=== PATIENT | female | born 1990 | race Caucasian/White ===

== ENCOUNTER 2017-07-16 07:52 | Inpatient (IN) ==
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
--- OUTSIDE RECORDS SUMMARY | 2017-07-22 06:00 | External Medical Summary | Continuity of Care Document ---
:1990 Author Organization [facility] Address [address] [place], [place] [id number] Phone Allergies, Adverse Reactions, Alerts Substance Reaction Severity Status CEPHALEXIN MONOHYDRATE Unknown Active loratadine Unknown Active Medications Medication Instructions Dosage Effective Dates Status Comments (start - stop) oseltamivir 75 mg take 1 capsule by 75 MG - Active capsule oral route 2 times every day Vitamin take 1 tablet by Not Available - Active Tab oral route every day Tylenol 325 mg Tab take 1 tablet - Active (325MG) by oral route every 4 hours as needed Problems Condition Effective Dates (start - stop) Clinical Status Suprvsn of preg w poor reprodctv or - obstet hx, third tri Supervision of other high risk - pregnancies, third trimester 28 weeks gestation of - Suprvsn of preg w poor reprodctv or - obstet hx, first tri Supervision of other high risk - pregnancies, first trimester 13 weeks gestation of - Suprvsn of preg w poor reprodctv or - obstet hx, second tri Supervision of other high risk - pregnancies, second trimester 24 weeks gestation of - Suprvsn of preg w poor reprodctv or - obstet hx, second tri Supervision of other high risk - pregnancies, second trimester 16 weeks gestation of - Suprvsn of preg w poor reprodctv or - obstet hx, second tri Supervision of other high risk - pregnancies, second trimester 20 weeks gestation of - Suprvsn of preg w poor reprodctv or - obstet hx, second tri Supervision of other high risk - pregnancies, second trimester 20 weeks gestation of - Suprvsn of preg w poor reprodctv or - obstet hx, third tri Supervision of other high risk - pregnancies, third trimester 30 weeks gestation of - Supervision of other high risk - pregnancies, first trimester Encntr screen for infections w sexl - mode of transmiss Encounter for screening for oth - infec/parastc diseases Encounter for screening of - mother 9 weeks gestation of - Procedures Procedure Date OB Visit No Charge Results Test Name Date and Time Measure Units Reference Range Abnormal Flag Comments Unknown Advance Directives Directive Yes / No Effective Date File Name Unknown Encounters Encounter Practice Location Reason(s) Diagnoses Date Provider Care Team Description For Visit Members [facility] Suprvsn of preg w Apr-1 Kiara Referring In Womens poor reprodctv or 5-201 Sindi. Provider: yuliet Carey hx, third 8 700 Sindi [address] triSupervision of Medical Kiara L, 152, other high risk Center [address] [place] [address], [facility], Bharath Brooke, third [email or web address] 120, Center [id number], weeks gestation Chacho [facility] 120, [place] of Chacho NEGRO, tel:[phone] [place], , [place]. [id number]. tel: tel:[phone] Associates [facility] Suprvsn of preg w Mar-0 Kiara Referring In Womens poor reprodctv or 1-201 Sindi. Provider: yuliet Carey hx, third 8 700 Sindi PO [address] triSupervision of Medical Kiara L, 1522, other high risk Center [address] [place] [address], pregnancies, Bharath Brooke, third [email or web address] 120, Center [id number], weeks gestation Chacho [facility] 120, [place] of Chacho NEGRO, tel:[phone] [place], , [place]. [id number]. tel: tel: [phone] [facility] Feb-1 Kiara In Womens 5-201 Sindi. Health COLIN, 8 700 [address]22, Center [place], , Bharath NEGRO, 120, [id number], [place], [place], tel:[phone] , [place]. tel: [phone] [facility] Suprvsn of preg w Feb-0 Kiara Referring In Womens poor reprodctv or 1-201 Sindi. Provider: Yasmine SHAW, obstet hx, second 8 700 Sindi PO Box triSupervision of Medical Kiara L, 1522, other high risk Center [address] [place] [address], pregnancies, Dr, [facility], second 120, Center , [email or web address] weeks Bharath [place] 120, [place] gestation of Chacho NEGRO, tel: [phone] [place], , [place]. [id number]. tel: tel:[phone] [facility] Suprvsn of preg w Colin-0 Kiara Referring In Womens poor reprodctv or 4-201 Sindi. Provider: Yasmine SHAW obstet hx, second 8 700 Sindi PO Box triSupervision of Medical Kiara L, 1522, other high risk Center [address] [place] [address], pregnancies, , Bharath [facility], second 120, Center , [email or web address] weeks Bharath [place] 120, [place] gestation of Chacho NEGRO, tel: [phone] [place], , [place]. [id number]. tel: tel: [phone] [facility] Suprvsn of preg w Colin-0 Kiara Referring In Womens Ultrasound poor reprodctv or 4-201 Sindi. Provider: Yasmine SHAW, obstet hx, second 8 700 Sheron- PO Box triSupervision of Medical Thiesen 1522, other high risk Center [facility], pregnancies, , [facility] [address] [facility], second 120, [facility], , [email or web address] weeks [place], [place], [place] gestation of CHELLY NEGRO, [address]. tel: [phone] tel: , [place]. [id number] tel: [phone] Nicanor [place] Suprvsn of preg w Kiara Referring In Womens poor reprodctv or 3-201 Sindi. Provider: Health COLIN, obstet hx, second 7 700 Sindi PO Box triSupervision of Medical [facility] L, 1522, other high risk Center 700 [place], pregnancies, Dr, [facility], second 120, Center [id number], [email or web address] weeks [facility] 120, [place] gestation of Chacho NEGRO, tel: [phone] [place], , [place]. [id number]. tel: tel: [phone] Nicanor [place] Suprvsn of preg w Kiara Referring In Womens poor reprodctv or 7-201 Sindi. Provider: Yasmine SHAW, obstet hx, first 7 700 Sindi PO Box triSupervision of Medical [facility] L, 152, other high risk Center 700 [place], pregnancies, Bharath Brooke [facility], first [email or web address] 120, Center [id number], weeks gestation [facility] 120, [place] of [place], tel:[phone] [place], , [place]. [id number]. tel: tel: [phone] Nicanor [place] Supervision of Kiara Referring In Womens other high risk 5-201 Sindi. Provider: Yasmine SHAW, pregnancies, 7 700 Sindi PO Box first Medical Kiara L, 1522, trimesterEncntr Center [address] [place] [address], screen for Bharath Brooke, infections w sexl 120, Center [id number], mode of [place], [facility] 120, [place] transmissEncounte Chacho NEGRO, tel: r for screening [phone] [place], for oth , [place]. [id number]. infec/parastc tel: tel: diseasesEncounter [phone] for screening of mother9 weeks gestation of Nicanor Patel Terry In Womens Ultrasound 3-201 [facility], [address], 1522, [place], [place], [id number], , [place]. [place] tel: [phone] Family History Family Member Diagnosis Age At [...] older Payers Payer name Insurance type Covered libertarian ID Authorization(s) BCBS Out Of State [id number] BCBS Out Of [facility] [id number] Social History Type Description Quantity Date Captured Alcohol Use Details No Caffeine Use Details Unknown Tobacco Use Status Unknown Smoking Status Never smoker Vital Signs Date / Height Weight BMI Pulse Blood Temperature Respiratory Body Head BMI Time: Rate Pressure Rate Surface Circumference percentile Area 254.00 47.9 131/83 -2018 lbs 9 mm[Hg] 2:52 kg/m PM eter (2) 47.8 -2018 2 2:52 kg/m PM eter (2) Chief Complaint And Reason For Visit Unknown Chief Complaint And Reason For Visit Reason For Referral Reason For Referral Unknown Plan Of Care Date Type Action Status Appointment Erika Pelayo BOOKED Appointment Erika Pelayo BOOKED Appointment Erika Pelayo BOOKED Appointment Erika Pelayo BOOKED Appointment Erika Pelayo BOOKED Future Order: Radiology Order Complete OB Ultrasound > 14 Ordered Weeks ([id number]) Date Type Problem Goal Intervention Status Start [...]
--- OUTSIDE RECORDS SUMMARY | 2017-07-22 06:00 | External Medical Summary | Continuity of Care Document ---
:1990 Author Organization [facility] Address [address] [place], [place] [address] Phone Allergies, Adverse Reactions, Alerts Substance Reaction [...] other high risk - pregnancies, third trimester 34 weeks gestation of - Suprvsn of preg [...] other high risk - pregnancies, third trimester 31 weeks gestation of - Suprvsn of preg w poor reprodctv or - obstet hx, third tri Supervision of other high risk - pregnancies, third trimester 30 weeks gestation of - Suprvsn of preg w poor reprodctv or - obstet hx, third tri Supervision of other high risk - pregnancies, third trimester 37 weeks gestation of - Suprvsn of preg w poor reprodctv or - obstet hx, third tri 31 weeks gestation of - Suprvsn of preg w poor reprodctv or - obstet hx, third tri Supervision of other high risk - pregnancies, third trimester 28 weeks gestation of - Supervision of other high risk - pregnancies, first trimester Encntr screen for infections w sexl - mode of transmiss Encounter for screening for oth - infec/parastc diseases Encounter for screening of - mother 9 weeks gestation of - Supervision of other high risk - pregnancies, third trimester Encounter For Screening For - Streptococcus B 36 weeks gestation of - Procedures Procedure Date OB Visit No Charge Results Test Name Date and Time Measure Units Reference Range Abnormal Flag Comments Unknown Advance Directives Directive Yes / No Effective Date File Name Unknown Encounters Encounter Practice Location Reason(s) Diagnoses Date Provider Care Team Description For Visit Members Nicanor [place] Suprvsn of preg w Kiara Referring In Womens poor reprodctv or 3-201 Sindi. Provider: [facility], obstet hx, third 8 700 Sindi [address] triSupervision of Medical Kiara L, 1522, other high risk Center [address] [place], pregnancies, Bharath Brooke, third [email or web address] 120, Center [id number], weeks gestation [place], Bharath 120, [place] of Chacho NEGRO, tel:[phone] [place], , [place]. [id number]. tel: tel:[phone] Nicanor [place] Supervision of Apr-2 Kiara Referring In Womens other high risk 6-201 Sindi. Provider: Health COLIN, pregnancies, 8 700 Sindi PO Box third Medical Kiara L, 1522, trimesterEncounte Center [address] [place] [address], r For Bharath Brooke, Screening For 120, Center [id number], Streptococcus B36 [place], Bharath 120, [place] weeks gestation Chacho NEGRO, tel:+ [phone] [place], , [place]. [id number]. tel: tel:[phone] Nicanor [place] Suprvsn of preg w Apr-1 Kiara Referring In Womens poor reprodctv or 2-201 Sindi. Provider: Health COLIN, obstet hx, third 8 700 Sindi PO Box triSupervision of Medical Kiara L, 1522, other high risk Center [address] [place] [address], pregnancies, Bharath Brooke, third [email or web address] 120, Center [id number], weeks gestation [place], Bharath 120, [place] of Chacho NEGRO, tel:[phone] [place], , [place]. [id number]. tel: tel:[phone] Nicanor [place] Suprvsn of preg w Mar-2 Kiara Referring In Womens poor reprodctv or 8-201 Sindi. Provider: Health COLIN, obstet hx, third 8 700 Sindi PO Box triSupervision of Medical Kiara L, 1522, other high risk Center [address] [place] [address], pregnancies, Bharath Brooke, third [email or web address] 120, Center [id number], weeks gestation [place], Bharath 120, [place] of Chacho NEGRO, tel: [phone] [place], , [place]. [id number]. tel: tel:+ [phone] Associates [facility] Suprvsn of preg w Mar-2 Kiara Referring In Womens Ultrasound poor reprodctv or 8-201 Sindi. Provider: dunia Careyet hx, third 8 700 Sheron- PO Box tri31 weeks Medical Thiesen 1522, gestation of [facility], Bharath Brooke [address] [facility], 120, Drive, [id number], Kevin [place], [place], [address]. tel: [phone] tel: , [place]. [id number] tel: [phone] Associates [facility] Suprvsn of preg w Mar-1 Kiara Referring In Womens poor reprodctv or 5-201 Sindi. Provider: dunia Careyet hx, third 8 700 Sindi PO Box triSupervision of Medical Kiara L, 1522, other high risk Center [address] [place] [address], pregnancies, Bharath Brooke, third [email or web address] 120, Center , weeks gestation Chacho [facility] 120, [place] of Chacho NEGRO, tel: [phone] [place], , [place]. [id number]. tel: tel: [phone] Associates [facility] Suprvsn of preg w Mar-0 Kiara Referring In Womens poor reprodctv or 1-201 Sindi. Provider: dunia Careyet hx, third 8 700 Sindi PO Box triSupervision of Medical Kiara L, 1522, other high risk Center [address] [place] [address], pregnancies, Bharath Brooke, third 120, Center , weeks gestation [place], Bharath 120, [place] of Chacho NEGRO, tel: [phone] [place], , [place]. [id number]. tel: tel: [phone] Associates [facility] Suprvsn of preg w Feb-0 Kiara Referring In Womens poor reprodctv or 1-201 Sidni. Provider: dunia Caeryet hx, second 8 700 Sindi PO Box triSupervision of Medical Kiara L, 1522, other high risk Center [address] [place] [address], pregnancies, , [facility] José Luis NEGRO, second 120, Center [id number], weeks [place], Bharath 120, [place] gestation of Chacho NEGRO, tel: [phone] [place], , [place]. [id number]. tel: tel: [phone] Associates [facility] Suprvsn of preg w Colin-0 Kiara Referring In Womens poor reprodctv or 4-201 Sindi. Provider: Health COLIN, obstet hx, second 8 700 Sindi PO Box triSupervision of Medical Kiara L, 1522, other high risk Center [address] [place] [address], pregnancies, , [facility], second 120, Center [id number], [email or web address] weeks [place], Bharath 120, [place] gestation of Chacho NEGRO, tel: [phone] [place], , [place]. [id number]. tel: tel: [phone] Associates [facility] Suprvsn of preg w Colin-0 Kiara Referring In Womens Ultrasound poor reprodctv or 4-201 Sindi. Provider: Yasmine SHAW obstet hx, second 8 700 Sheron- PO Box triSupervision of Medical Thiesen 1522, other high risk Center [facility], pregnancies, , [facility] [address] [place], second 120, Drive, , [email or web address] weeks Rubi [place], [place] gestation of [place] NEGRO, [address]. tel: tel: , [place]. [id number] tel: [phone] Nicanor [place] Suprvsn of preg w Dec-1 Kiara Referring In Womens poor reprodctv or 3-201 Sindi. Provider: Yasmine SHAW obstet hx, second 7 700 Sindi PO Box triSupervision of Medical Kiara L, 1522, other high risk Center [address] [place] [address], pregnancies, , [facility] [place], second 120, Center [id number], [email or web address] weeks [place], Bharath 120, [place] gestation of Chacho NEGRO, tel: [phone] [place], , [place]. [id number]. tel: tel: [phone] Nicanor [place] Suprvsn of preg w Kiara Referring In Womens poor reprodctv or 7-201 Sindi. Provider: Health COLIN, obstet hx, first 7 700 Sindi PO Box triSupervision of Medical [facility] L, 1522, other high risk Center [address] [place], pregnancies, DrBharath, first [email or web address] 120, Center [id number], weeks gestation [facility] 120, [place] of Chacho NEGRO, tel: [phone] [place], , [place]. [id number]. tel: tel: [phone] Nicanor [place] Supervision of Kiara Referring In Womens other high risk 5-201 Sindi. Provider: Yasmine SHAW, pregnancies, 7 700 Sindi PO Box first Medical [facility] L, 1522, trimesterEncntr Center 700 [place], screen for Bharath Brooke, infections w sexl 120, Center [id number], mode of [place], [facility] 120, [place] transmissEncounte Chacho NEGRO, tel: r for screening [phone] [place], for oth , [place]. [id number]. infec/parastc tel: tel:[phone] diseasesEncounter [phone] for screening of mother9 weeks gestation of Associates [facility] In Womens Ultrasound 3-201 Alfredo. Health COLIN, [address] [place], 1522, [facility], [place], [place], [id number], , [place]. [place] tel: tel: [phone] Family History Family Member Diagnosis Age At [...] of Stroke Immunizations Vaccine Date Status Comments Tdap completed Source: New Immunization Record Influenza, injectable, completed Source: New Immunization Record quadrivalent, preservative free, 3 yrs or older Payers Payer name Insurance type Covered republican ID Authorization(s) BCBS Out Of State [id number] BCBS Out Of State [id number] BCBS Out Of [place] [id number] Social History Type Description Quantity Date Captured Alcohol Use Details No Caffeine Use Details tea 16 oz per day Tobacco Use Status Never smoked tobacco Smoking Status Never smoker Vital Signs Date / Height Weight BMI Pulse Blood Temperature Respiratory Body Head BMI Time: Rate Pressure Rate Surface Circumference percentile Area 254.30 48.0 132/2018 lbs 4 mm[Hg] 3:28 kg/m PM eter (2) Chief Complaint And Reason For Visit Unknown Chief Complaint And Reason For Visit Reason For Referral Reason For Referral Unknown Plan Of Care Date Type Action Status Appointment Erika Pelayo BOOKED Future Order: Radiology Order Complete OB Ultrasound > 14 Ordered Weeks ([id number]) Future Order: Radiology Order Ultrasound OB Follow-up ([id number]) Ordered Date Type Problem Goal Intervention Status Start [...]
--- OUTSIDE RECORDS SUMMARY | 2017-07-22 06:00 | External Medical Summary | Summary of Care ---
:1990 Author Name Josh Reynolds M.D. 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 Quantity: 1 Refills: 1 Josh Reynolds M.D. Start 02-Apr-2016 Active Allergies and Adverse Reactions Name Dates Details Cephalexin CAPS (Allergy) Status: Active Past Medical History Name Dates Details History of acute bronchitis (V12.69, Z87.09) Status: Resolved History of Ankle injury (959.7, S99.919A) Status: Resolved History of Ankle joint pain (719.47, M25.579) Status: Resolved History of Female pelvic pain (625.9, R10.2) Status: Resolved History of Hand pain (729.5, M79.643) Status: Resolved History of Irregular periods/menstrual cycles (626.4, N92.6) Status: Resolved History of Pain in joint of right knee (719.46, M25.561) Status: Resolved History of sprain of ankle (V13.59, Z87.828) Status: Resolved History of Strain of rhomboid muscle (847.1, S29.012A) Status: Resolved Procedures Procedure Dates Details Procedures not documented Immunization Name Dates Details Diphtheria-Tetanus Toxoids 6.7-5 LFU/0.5ML INJ on: Social History Name Dates Details - Status: Smoking Status Name Dates Details Never smoker Vital Signs Date Test Result Details 02-Apr-2016 13:09 BP Systolic 130 mm[Hg] Status: Comments: Location: ; Position: BP Diastolic 82 mm[Hg] Status: Comments: Location: ; Position: Temperature 98.7 f Status: Comments: Method: Heart Rate 99 /min Status: Comments: Location: ; Height 62 in Status: Weight 235 lb Status: Physical Findings 96 Status: Comments: O2 Saturation Body Mass Index Calculated 42.98 kg/m2 Status: Body Surface Area Calculated 2.05 m2 Status: Results Date Description Value Details Results not documented Plan of Care Name Dates Details Planned Observations Planned Goals not documented Interventions Provided Medication ChangesAzithromycin 250 MG Oral Tablet - Start Instructions Name Dates Details Instructions not documented Encounters Appointment; Josh Reynolds M.D. On 08-Dec-2014 Encounter Diagnosis: Problem not documented 15:00
--- OUTSIDE RECORDS SUMMARY | 2017-07-22 06:00 | External Medical Summary ---
:1990 Author Name GENERATED, SYSTEM Care Team Providers Name Role Phone UNASSIGNED DOCTOR MD RUFUS DOCTOR Primary Care Provider [phone] Reason For Visit Chief Complaint ABDOMINAL PAIN Social History Functional Status Vital Signs Results Chemistry from 06/17/2014 10:04 [id number] MMOL/L (136-145 MMOL/L) POTASSIUM3.4 MMOL/L L (3.5-5.1 MMOL/L) [id number] MMOL/L (98-107 MMOL/L) QFK585.6 MMOL/L (21.0-32.0 MMOL/L) ANION GAP3.4 MMOL/L L (8.0-16.0 MMOL/L) BUN10 MG/DL (7-18 MG/DL) CREATININE0.67 MG/DL (0.43-0.83 MG/DL) BUN/CREATININE RATIO14.9 (9.1-17.0 ) IKEOLEQ71 MG/DL (65-99 MG/DL) GFR EST NON AFR IVORIAN>90 ML/MIN GFRA EST AFR AMER>90 ML/MIN CALCIUM8.6 MG/DL (8.5-10.1 MG/DL) BILIRUBIN TOTAL0.25 MG/DL (0.20-1.00 MG/DL) TOTAL PROTEIN6.7 GM/DL (6.4-8.2 GM/DL) ALBUMIN3.6 GM/DL (3.4-5.0 GM/DL) GLOBULIN3.1 GM/DL (2.3-3.5 GM/DL) A/G RATIO1.2 MG/DL L (1.5-2.2 MG/DL) ALK PHOS66 U/L (46-116 U/L) ALT (SGPT)<6 U/L L (16-63 U/L) AST (SGOT)14 U/L L (15-37 U/L) PFZVBX72 U/L (73-393 U/L) TESTNEGATIVE (NEGATIVE )Hematology from 06/17/2014 10:04 PMWBC9.1 X10e3 /UL (3.6-11.2 X10e3/UL) RBC4.57 X10e6/UL (3.63-4.92 X10e6/UL) GSODXIOGUJ28.1 G/DL (11.0-14.3 G/DL) PWYUTLYHML24.4 % (31.2-41.9 %) MCV90.6 FL (79.0-98.0 FL) MCH30.9 PG (27.0-33.0 PG) MCHC34.1 G/DL (32.0-36.0 G/DL) RDW13.2 % (12.3-17.0 %) RDWSD41.6 (37.1-47.8 ) WGKZYKTI879 X10e3/UL (159-386 X10e3/UL) MPV8.8 FL (7.4-10.4 FL) AUTOMATED DIFFPERFORMED SEGS54.6 % AACFKPXUSOL20.0 % MONOCYTES5.8 % EOSINOPHILS4.1 % BASOPHILS0.5 % ABSOLUTE NEUTROPHILS5.00 X10e3/UL (1.80-7.80 X10e3/UL) ABSOLUTE LYMPHOCYTES3.20 X10e3/UL H (1.00-3.00 X10e3/UL) ABSOLUTE MONOCYTES0.50 X10e3/UL (0.30-1.00 X10e3/UL) ABSOLUTE EOSINOPHILS0.40 X10e3/UL (0.00-0.50 X10e3/UL) ABSOLUTE BASOPHILS0.00 X10e3/UL (0.00-0.20 X10e3/UL)Urinalysis from 06/17/2014 9: 45 PM Status: Final Result URINALYSIS Specimen Number: [id number] Sample Collection Date/Time: 06/17/2014 9:45 PM Specimen Source: URINE COLORYELLOW (STRAW/YELL/DK YELL ) URINE APPEARANCECLOUDY A (CLEAR ) URINE PH6.5 (5.0-8.0 ) URINE SPECIFIC GRAVITY1.025 (<=1.005->=1.030 ) URINE GLUCOSENEGATIVE MG/DL (NEGATIVE MG/DL) URINE BILIRUBINNEGATIVE (NEGATIVE ) URINE KETONESNEGATIVE MG/DL (NEGATIVE MG/DL) URINE BLOODNEGATIVE (NEGATIVE ) URINE PROTEINNEGATIVE MG/DL (NEGATIVE MG/DL) URINE UROBILINOGEN1.0 EU/DL (0.2-1.0 EU/DL) URINE NITRITESNEGATIVE (NEGATIVE ) *URINE LEUKOCYTESSMALL A (NEGATIVE ) MICROSCOPIC EXAM PERFORMEDPERFORMED WBC1-5 /HPF (0-5 /HPF) SQUAMOUS EP. CELLSFEW /LPF (NEG-FEW /LPF) MUCOUS THREADSFEW /LPF A (NEGATIVE /LPF) BACTERIAFEW /HPF A (NEGATIVE /HPF)CT Scan from 06/17/2014 9:41 PMCT ABD/PELVIS W/ O CONTRAST (Preliminary Result)DATE OF EXAM: Jun 17 2014 10:35PM Proc: CT 0231 - CT ABD/PELVIS W/O CONTRAST CPT Code(s): 06828-; ; ; INDICATION / CLINICAL HISTORY: Abdominal pain. COMPARISON: None. FINDINGS: The visualized lung bases are clear. The unenhanced liver, spleen, pancreas and gallbladder are normal. The adrenals are normal. There is no urolithiasis. There is no hydronephrosis. The urinary bladder is normal. The abdominal aorta is normal in caliber. An IUD is noted in the uterus. There is a small amount of free fluid in the pelvis, likely physiologic in nature. The unopacified and unenhanced bowel is grossly unremarkable. There is a small fat containing umbilical hernia. IMPRESSION: No acute abdominal processes. A small amount of free fluid in the pelvis is likely physiologic. Problems Encounter Diagnosis No relevant problems exist. Encounters Encounter Diagnosis No relevant problems exist. Plan of Care Procedures Completed , on 07/29/2009 12:00 AMCompleted , on 07/29/2009 12:00 AMCompleted , on 12:00 AMCompleted , on 07/29/2009 12:00 AM Immunizations No immunizations administered or ordered. Hospital Course Hospital Discharge Instructions Allergies, Adverse Reactions, Alerts Latex Allergy has not been assessed.IV Contrast Allergy has not been assessed.No Known Drug Allergies. Medication Medication reconciliation has not been performed.
--- OUTSIDE RECORDS SUMMARY | 2017-07-22 06:00 | External Medical Summary | Summary of Care ---
:1990 Author Name Josh Reynolds M.D. Address [address] [place], [place] [id number] Care Team Providers Name Role Phone Josh Reynolds M.D. Unavailable Unavailable Josh Reynolds Unavailable Unavailable Unavailable [...] pain, chronic, right (719.47, M25.571) Status: Active Acute bronchitis due to other specified organisms (466.0, J20.8) Status: Active Never smoker Status: Active Exposure to the flu (V01.79, Z20.828) Status: Active control counseling (V25.09, Z30.09) Status: Active Medications Name Dates Details Reclipsen 0.15-30 MG-MCG Oral Tablet TAKE ONE TABLET BY MOUTH EVERY DAY DIRECTED Quantity: 28 Refills: 11 Josh Reynolds M.D. Start 30-May-2016 Active Allergies and Adverse Reactions Name Dates [...] smoker Vital Signs Date Test Result Details 30-May-2016 10:44 BP Systolic 116 mm[Hg] Status: Comments: Location: ; Position: BP Diastolic 78 mm[Hg] Status: Comments: Location: ; Position: Temperature 98.6 f Status: Comments: Method: Heart Rate 94 /min Status: Comments: Location: ; Physical Findings 14 Status: Comments: Respiration Height 62 in Status: Weight 240 lb Status: Physical Findings 96 Status: Comments: O2 Saturation Body Mass Index Calculated 43.9 kg/m2 Status: Body Surface Area Calculated 2.07 m2 Status: Results Date Description Value Details Results not documented Plan of Care Name Dates Details Planned Observations Planned Goals not documented Interventions Provided Medication ChangesReclipsen 0.15-30 MG-MCG Oral Tablet - Start Instructions Name Dates Details Instructions not documented Encounters Appointment; Josh Reynolds M.D. On 02-Apr-2016 Encounter Diagnosis: Problem not documented 13:15 Appointment; Josh Reynolds M.D. On 08-Dec-2014 Encounter Diagnosis: Problem not documented 15:00
--- OUTSIDE RECORDS SUMMARY | 2017-07-22 06:00 | External Medical Summary | Summary of Care ---
:1990 Author Name Josh Reynolds M.D. Address [address] [place], [place] [id number] Care Team Providers Name Role Phone Josh Reynolds Primary Care Provider Unavailable Unavailable Unavailable Unavailable Functional Status Functional [...] pain, chronic, right (719.47, M25.571) Status: Active Medications Name Dates Details Medication not documented Allergies and Adverse Reactions Name Dates Details Cephalexin CAPS Status: Active Past Medical History Name Dates [...] Name Dates Details Diphtheria-Tetanus Toxoids 6.7-5 LFU/0.5ML Intramuscular Injectable Administered on: Social History Name Dates Details Smoking StatusNever smoker Vital Signs Date Test Result Details 08-Dec-2014 15:15 BP Systolic 100 mm[Hg] Status: BP Diastolic 80 mm[Hg] Status: Temperature 98.3 f Status: Heart Rate 96 /min Status: Respiration Rate 12 /min Status: Height 62 in Status: Weight 214 lb Status: Body Mass Index Calculated 39.14 kg/m2 Status: Body Surface Area Calculated 1.97 m2 Status: Results Date Description Value Details Results not documented Plan of Care Planned Observations Name Dates Details Planned Goals not documented Goal Planned Encounters Appointment; Provider: Josh Reynolds On 01-Apr-2007 14:30 Instructions Instructions not documented Encounters Appointment; Josh Reynolds On 08-Dec-2014 Encounter Diagnosis: Problem not documented 15:00 Appointment; Josh Reynolds On 04-Oct-2013 Encounter Diagnosis: Problem not documented 14:15 Appointment; Josh Reynolds On 02-Mar-2013 Encounter Diagnosis: Problem not documented 09:45
--- OUTSIDE RECORDS SUMMARY | 2017-07-22 06:00 | External Medical Summary | Continuity of Care Document ---
:1990 Author Organization [facility] Address [address] [place], [place] [address] Phone Allergies, Adverse Reactions, Alerts Substance Reaction [...] first trimester 13 weeks gestation of - Supervision of other high risk - pregnancies, first trimester Encntr screen for infections w sexl - mode of transmiss Encounter for screening for oth - infec/parastc diseases Encounter for screening of - mother 9 weeks gestation of - Procedures Procedure Date OB Visit No Charge OB Prepayment Agreement Urine Culture OB Panel With An HIV Venpnctr fngr/heel/ear stick routne Cult, bactr, ident isolate, urine Results Test Name Date and Time Measure Units Reference Range Abnormal Flag Comments Unknown Advance Directives Directive Yes / No Effective Date File Name Unknown Encounters Encounter Practice Location Reason(s) Diagnoses Date Provider Care Team Description For Visit Members [facility] Suprvsn of preg w Kiara Referring In [facility] poor reprodctv or Sindi. Provider: Health PA, obstet hx, first 7 700 Sindi PO [address] triSupervision of Medical [facility] L, 1522, other high risk Center [address] [place], pregnancies, Dr, Bharath NEGRO, first [id number] 120, Center [id number], weeks gestation [place], [facility] 120, [place] of Chacho NEGRO, tel:+ [phone] [place], , [place]. [id number]. tel: tel:[phone] [facility] Supervision of Kiara Referring In Womens other high risk 5-201 Sindi. Provider: Health COLIN, pregnancies, 7 700 Sindi [address] first Medical Kiara L, 1522, trimesterEncntr Center [address] [place], screen for Dr, Bharath NEGRO, infections w sexl 120, Center [id number], mode of [place], [facility] 120, [place] transmissEncounte Chacho NEGRO, tel: r for screening [phone] [place], for oth , [place]. [id number]. infec/parastc tel: tel:[phone] diseasesEncounter [phone] for screening of mother9 weeks gestation of Associates [facility] Terry In Womens Ultrasound 3-201 Alfredo. Health [facility], [address], [place], [place], [id number], , [place]. [place] tel: tel: [phone] Family History Family Member Diagnosis Age At [...] Covered republican ID Authorization(s) [employer] [facility] [id number] [employer] [facility] [id number] Social History Type Description Quantity Date Captured Alcohol Use Details No Caffeine Use Details tea 16 oz per day Tobacco Use Status Never smoked tobacco Smoking Status Never smoker Vital Signs Date / Height Weight BMI Pulse Blood Temperature Respiratory Body Head BMI Time: Rate Pressure Rate Surface Circumference percentile Area 46.7 -2017 2 1:49 kg/m PM eter (2) 249.50 47.1 130/89 -2017 lbs 4 mm[Hg] 1:55 kg/m PM eter (2) Chief Complaint And Reason For Visit Unknown Chief Complaint And Reason For Visit Reason For Referral Reason For Referral Unknown Plan Of Care Date Type Action Status Appointment Erika Pelayo BOOKED Date Type Problem [...]
--- OUTSIDE RECORDS SUMMARY | 2017-07-22 06:00 | External Medical Summary | Continuity of Care Document ---
:1990 Author Organization [facility] Address [address] [place], [place] [address] Phone Allergies, Adverse Reactions, Alerts Substance Reaction [...] third trimester 34 weeks gestation of - Supervision of other high risk - pregnancies, first trimester Encntr screen for infections w sexl - mode of transmiss Encounter for screening for oth - infec/parastc diseases Encounter for screening of - mother 9 weeks gestation of - Procedures Procedure Date Ultrasnd preg uterus, flwup/repeat Results Test Name Date and Time Measure Units Reference Range Abnormal Flag Comments Unknown Advance Directives Directive Yes / No Effective Date File Name Unknown Encounters Encounter Practice Location Reason(s) Diagnoses Date Provider Care Team Description For Visit Members Nicanor Baezn of preg w Kiara Referring In Womens poor reprodctv or 2-201 Sindi. Provider: Health PA, obstet hx, third 8 700 Sindi PO Box triSupervision of [facility] L, 1522, other high risk Center [address] [place], pregnancies, Bharath Brooke, third [id number] 120, [place] [id number], weeks gestation Bharath [place] 120, [place] of [place] NEGRO, tel:[phone] [place], [id number] , [place]. [id number]. tel: tel: [phone] Associates [place] Suprvsn of preg w Mar-2 Kiara Referring In Womens poor reprodctv or 8-201 Sindi. Provider: Yasmine SHAW obstet hx, third 8 700 Sindi PO Box triSupervision of Medical Kiara L, 1522, other high risk Center [address] [place] [address], pregnancies, Bharath Brooke, third [email or web address] 120, Center [id number], weeks gestation [place], [facility] 120, [place] of Ch[place] NEGRO, tel:[phone] [place], , [place]. [id number]. tel: tel: [phone] [facility] Suprvsn of preg w Mar-2 Kiara Referring In Womens Ultrasound poor reprodctv or 8-201 Sindi. Provider: Yasmine SHAW obstet hx, third 8 700 Sheron- PO [address] tri31 weeks Medical Thiesen 1522, gestation of [facility], [facility] [address] [facility] [id number] [place] [address], 120, [facility], , Kevin Flor, [place], [address]. tel:[phone] tel: , [place]. [id number] tel: [phone] [facility] Suprvsn of preg w Mar-1 Kiara Referring In Womens poor reprodctv or 5-201 Sindi. Provider: dunia Careyet hx, third 8 700 Sindi PO Box triSupervision of Medical [place] L, 1522, other high risk Center [address] [place] [address], pregnancies, Bharath Brooke, third [id number] 120, Center [id number], weeks gestation [place], [facility] 120, [place] of Chacho NEGRO, tel: [phone] [place], , [place]. [id number]. tel: tel: [phone] [facility] Suprvsn of preg w Mar-0 Kiara Referring In Womens poor reprodctv or 1-201 Sindi. Provider: Yasmine SHAW obstet hx, third 8 700 Sindi PO Box triSupervision of Medical [place] L, 1522, other high risk Center [address] [place] [address], pregnancies, Bharath Brooke, third [id number] 120, Center [id number], weeks gestation Chacho Bharath 120, [place] of Ch[place] NEGRO, tel:[phone] [place], , [place]. [id number]. tel: tel: [phone] [facility] Suprvsn of preg w Feb-0 Kiara Referring In Womens poor reprodctv or 1-201 Sindi. Provider: Health COLIN, obstet hx, second 8 700 Sindi PO Box triSupervision of Medical [facility] L, 1522, other high risk Center [address] [place], pregnancies, , [facility], second 120, Center [id number], [id number] weeks Chacho Bharath 120, [place] gestation of Chacho NEGRO, tel: [phone] [place], , [place]. [id number]. tel: tel: [phone] Nicanor [place] Suprvsn of preg w Colin-0 Kiara Referring In Womens poor reprodctv or 4-201 Sindi. Provider: Yasmine SHAW obstet hx, second 8 700 Sindi PO Box triSupervision of Medical [facility] L, 1522, other high risk Center [address] [place], pregnancies, , [facility], second 120, Center [id number] weeks Chacho Bharath 120, [place] gestation of Chacho NEGRO, tel: [phone] [place], , [place]. [id number]. tel: tel: [phone] [facility] Suprvsn of preg w Colin-0 Kiara Referring In Womens Ultrasound poor reprodctv or 4-201 Sindi. Provider: Yasmine SHAW obstet hx, second 8 700 Sheron- PO Box [facility]Super[facility], other high risk Center [place], [place], pregnancies, , [facility] [address] [facility], second [address], Drive, , weeks [place], [place], [address]. tel:+ [phone] tel: , [place]. [id number] tel: [phone] Nicanor [place] Suprvsn of preg w Kiara Referring In Womens poor reprodctv or 3-201 Sindi. Provider: Yasmine SHAW, obstet hx, second 7 700 Sindi PO Box triSupervision of Medical [facility] L, 1522, other high risk Center [address] [place], pregnancies, DrBharath, second 120, Center [id number], weeks [place], [facility] 120, [place] gestation of Chacho NEGRO, tel: [phone] [place], , [place]. [id number]. tel: tel: [phone] Nicanor [place] Suprvsn of preg w Kiara Referring In Womens poor reprodctv or 7-201 Sindi. Provider: Yasmine SHAW, obstet hx, first 7 700 Sindi PO Box triSupervision of Medical [facility] L, 152, other high risk Center 700 [place], pregnancies, Bharath Brooke, first [id number] 120, Center [id number], weeks gestation [place], [facility] 120, [place] of Chacho NEGRO, tel: [phone] [place], , [place]. [id number]. tel: tel: [phone] Nicanor [place] Supervision of Kiara Referring In Womens other high risk 5-201 Sindi. Provider: Yasmine SHAW, pregnancies, 7 700 Sindi PO Box first Medical [facility], 1522, trimesterEncntr Center [address] [place] [address], screen for Bharath Brooke, infections w sexl 120, Center [id number], mode of [place], Bharath 120, [place] transmissEncounte Ch[place] NEGRO, tel: r for screening [phone] [place], for oth , [place]. [id number]. infec/parastc tel: tel: diseasesEncounter [phone] for screening of mother9 weeks gestation of Associates [facility] Terry In Womens Ultrasound 3-201 Alfredo. Health COLIN, [address], 1522, [place], [place], [place], [id number], , [place]. [place] tel: [phone] Family History Family Member Diagnosis Age At [...] older Payers Payer name Insurance type Covered alliance party ID Authorization(s) BCBS Out Of State [id number] BCBS Out Of State [id number] Social History Type Description Quantity Date Captured [...] Erika Pelayo BOOKED Future Order: Radiology Order Ultrasound OB Follow-up ([id number]) Ordered Future Order: Radiology Order Complete OB Ultrasound > 14 Ordered Weeks ([id number]) Date Type Problem Goal Intervention Status Start [...]
--- OUTSIDE RECORDS SUMMARY | 2017-07-22 06:01 | External Medical Summary | Continuity of Care Document ---
:1990 Author Organization [facility] Address [address] [place], [place] [id number] Phone Allergies, Adverse Reactions, Alerts Substance Reaction [...] of preg w Jan- Kiara Referring In [facility] poor reprodctv or 3-201 Sindi. Provider: Health COLIN obstet hx, second 7 700 Sindi PO Box triSupervision of Medical Kiara L, 1522, other high risk Center [address] [place], pregnancies, Dr, Bharath NEGRO, second 120, Center [id number], [id number] weeks [place], [facility] 120, [place] gestation of Chacho NEGRO, tel:+ [phone] [place], , [place]. [id number]. tel: tel: [phone] Nicanor [place] Suprvsn of preg w Kiara Referring In Womens poor reprodctv or 7-201 Sindi. Provider: Health COLIN, obstet hx, first 7 700 Sindi PO Box triSupervision of Medical [facility] L, 1522, other high risk Center [address] [place], pregnancies, Dr, Bharath NEGRO, first [id number] 120, Center [id number], weeks gestation [place], [facility] 120, [place] of Chacho NEGRO, tel:[phone] [place], , [place]. [id number]. tel: tel:[phone] Nicanor [place] Supervision of Kiara Referring In Womens other high risk 5-201 Sidni. Provider: Yasmine SHAW, pregnancies, 7 700 Sindi PO Box first Medical [facility] L, 1522, trimesterEncntr Center [address] [place] [address], screen for Dr, [facility] José Luis [place], infections w sexl 120, Center [id number], mode of [place], [facility] 120, [place] transmissEncounte Chacho NEGRO, tel: r for screening [phone] [place], for oth , [place]. [id number]. infec/parastc tel: tel:[phone] diseasesEncounter [phone] for screening of mother9 weeks gestation of Associates [facility] Terry In Womens Ultrasound 3-201 Alfredo. [facility], [address], 1522, [place], [place], [place], [id number], , [place]. [place] tel: tel: [phone] Family History Family Member Diagnosis Age At [...] party ID Authorization(s) BCBS Out Of State [id number] BCBS Out Of State [id number] Social History Type Description Quantity Date Captured Alcohol Use Details No Caffeine Use Details Unknown Tobacco Use Status Unknown Smoking Status Never smoker Vital Signs Date / Height Weight BMI Pulse Blood Temperature Respiratory Body Head BMI Time: Rate Pressure Rate Surface Circumference percentile Area 249.70 47.1 122/ lbs 7 mm[Hg] 5:18 kg/m PM eter (2) Chief Complaint And [...]
--- OUTSIDE RECORDS SUMMARY | 2017-07-22 06:01 | External Medical Summary | Continuity of Care Document ---
:1990 Author Organization [facility] Address [address] [place], [place] [id number] Phone Allergies, Adverse Reactions, Alerts Substance Reaction [...] second trimester 20 weeks gestation of - Supervision of other [...] Members Nicanor [place] Suprvsn of preg w Feb-0 Kiara Referring In Womens poor reprodctv or 4-201 Sindi. Provider: dunia Careyet hx, second 8 700 Sindi PO [address] triSupervision of Medical Kiara L, 1522, other high risk Center [address] [place], pregnancies, , [facility] Medical MARKY, second 120, Center , [email or web address] weeks [facility] 120, [place] gestation of MARKYChacho, tel: [phone] [place], , [place]. [id number]. tel: tel: [phone] Nicanor [place] Suprvsn of preg w Feb- Kiara Referring In Womens Ultrasound poor reprodctv or 4-201 Sindi. Provider: dunia Careyet hx, second 8 700 Sheron- PO Box triSupervision of Medical Thiesen 1522, other high risk Center [facility], pregnancies, , [facility] [address] [facility], second 120, Drive, , [id number] weeks Kevin [place], [place] gestation of CHELLY NEGRO, [address]. tel: tel: , [place]. [id number] tel: [phone] Nicanor [place] Suprvsn of preg w Kiara Referring In Womens poor reprodctv or 3-201 Sindi. Provider: dunia Careyet hx, second 7 700 Sindi PO Box triSupervision of Medical Kiara L, 1522, other high risk Center 700 [place], , [facility] Medical [place], second 120, Center , [email or web address] weeks Chacho [facility] 120, [place] gestation of MARKY [place], tel: [phone] [place], , [place]. [id number]. tel: tel: [phone] Nicanor [place] Suprvsn of preg w Kiara Referring In Womens poor reprodctv or 7-201 Sindi. Provider: Health COLIN, obstet hx, first 7 700 Sindi PO Box triSupervision of Medical Kiara L, 1522, other high risk Center [address] [place], pregnancies, Bharath Brooke, first [email or web address] 120, Center [id number], weeks gestation [place], [facility] 120, [place] of Chacho NEGRO, tel:+ [phone] [place], , [place]. [id number]. tel: tel:[phone] Nicanor [place] Supervision of Kiara Referring In Womens other high risk 5-201 Sindi. Provider: Yasmine SHAW, pregnancies, 7 700 Sindi PO Box first Medical Kiara L, 1522, trimesterEncntr Center [address] [place], screen for Bharath Brooke, infections w sexl 120, Center [id number], mode of [facility] 120, [place] transmissEncounte Chacho NEGRO, tel: r for screening [phone] [place], for oth , [place]. [id number]. infec/parastc tel: tel:316 diseasesEncsutter [facility] [phone] for screening of mother9 weeks gestation of Nicanor CROCKER [facility] Terry In Womens Ultrasound 3-201 Alfredo. Health COLIN, [address] 1522, [facility], [place], [place], [id number], , [place]. [place] tel: tel: [phone] Family History Family Member Diagnosis Age At [...] party ID Authorization(s) BCBS Out Of [place] [id number] BCBS Out Of [place] [id number] Social History Type Description Quantity Date Captured Alcohol Use Details No Caffeine Use Details Unknown Tobacco Use Status Unknown Smoking Status Never smoker Vital Signs Date / Height Weight BMI Pulse Blood Temperature Respiratory Body Head BMI Time: Rate Pressure Rate Surface Circumference percentile Area 250.60 47.3 124/2018 lbs 4 mm[Hg] 2:46 kg/m PM eter (2) Chief Complaint And Reason For Visit Unknown Chief Complaint And Reason For Visit Reason For Referral Reason For Referral Unknown Plan Of Care Date Type Action Status Appointment Erika Pelayo BOOKED Future Order: Radiology Order Complete OB Ultrasound > 14 Ordered Weeks ([id number]) Date Type Problem Goal Intervention Status Start [...]
--- OUTSIDE RECORDS SUMMARY | 2017-07-22 06:01 | External Medical Summary | Continuity of Care Document ---
:1989 Author Organization [facility] Address [address] [place], [place] [phone] Phone Allergies, Adverse Reactions, Alerts Substance Reaction [...] Effective Dates (start - stop) Clinical Status Supervision of other high risk - pregnancies, third trimester Encounter For Screening For - Streptococcus B 36 weeks gestation of - Suprvsn of preg [...] other high risk - pregnancies, third trimester 38 weeks gestation of - Supervision of other high risk - pregnancies, first trimester Encntr screen for infections w sexl - mode of transmiss Encounter for screening for oth - infec/parastc diseases Encounter for screening of - mother 9 weeks gestation of - Supervision of other high risk - pregnancies, third trimester 38 weeks gestation of - Procedures Procedure Date Immuniz admnin, 1 vac, sngl/combo 19 Yrs + TDAP VACCINE >7 IM OB Visit No Charge - LAY OUT DRAFTER Cult, pathgnc orgnsm, screen Results Test Name Date and Time Measure Units Reference Range Abnormal Flag Comments Panel Description: Strep Gp B Culture+Rflx Strep Gp B Negative Negative Centers for Disease Control Culture+Rflx 16:11:00 and Prevention (CDC) and Australian Congressof Obstetricians and Gynecologists (ACOG) guidelines for prevention ofperinatal group B streptococcal (GBS) disease specify co-collection ofa vaginal and rectal swab specimen to maximize sensitivity of GBSdetection. Per the CDC and ACOG, swabbing both the lower vagina andrectum substantially increases the yield of detection compared withsampling the vagina alone. .Penicillin G, ampicillin, or cefazolin are indicated for intrapartumprophylaxis of GBS colonization. Reflex susceptibilitytesting should be performed prior to use of clindamycin only on GBSisolates from penicillin-allergic women who are considered a high riskfor anaphylaxis. Treatment with vancomycin without additional testingis warranted if resistance to clindamycin is noted. Advance Directives Directive Yes / No Effective Date File Name Unknown Encounters Encounter Practice Location Reason(s) Diagnoses Date Provider Care Team Description For Visit Members Associates [facility] Francevsn of preg w Kiara Referring In Womens poor reprodctv or 6-201 Sindi. Provider: Yasmine SHAW obstet , third 8 700 Sindi PO Box triSupervision of Medical Kiara L, 1522, other high risk Center [address] [place], pregnancies, Bharath Brooke, third [email or web address] 120, Center , weeks gestation Chacho [facility] 120, [place] of Chacho NEGRO, tel: [phone] [facility] , [place]. [id number]. tel: tel: [phone] Associates [facility] Supervision of Kiara Referring In Womens other high risk 0-201 Sindi. Provider: Yasmine SHAW, pregnancies, 8 700 Sindi PO Box third [email or web address] Medical Kiara L, 1522, weeks gestation Center [address] [place], of Bharath Brooke, 120, Center [id number], Chacho [facility] 120, US Chacho NEGRO, tel: [phone] [facility] , [place]. [id number]. tel: tel:[phone] Associates [facility] Suprvsn of preg w May-0 Kiara Referring In Womens poor reprodctv or 3-201 Sindi. Provider: Yasmine SHAW, obstet hx, third 8 700 Sindi PO Box triSupervision of Medical Kiara L, 1522, other high risk Center [address] [place] [address], pregnancies, Bharath Brooke, third [email or web address] 120, Center [id number], weeks gestation [place], Bharath 120, [place] of Chacho NEGRO, tel:[phone] [place], , [place]. [id number]. tel: tel:[phone] Nicanor [place] Supervision of Apr-2 Kiara Referring In Womens other high risk 6-201 Sindi. Provider: Yasmine SHAW, pregnancies, 8 700 Sindi PO Box third Medical Kiara L, 1522, trimesterEncounte Center [address] [place] [address], For Bharath Brooke, Screening For 120, Center [id number], Streptococcus B36 [place], Bharath 120, [place] weeks gestation Chacho NEGRO, tel: of [phone] [place], , [place]. [id number]. tel: tel:[phone] Associates [place] Suprvsn of preg w Apr-1 Kiara Referring In Womens poor reprodctv or 2-201 Sindi. Provider: Yasmine SHAW, obstet hx, third 8 700 Sindi PO Box triSupervision of Medical Kiara L, 1522, other high risk Center [address] [place] [address], pregnancies, Bharath Brooke, third [id number] 120, Center [id number], weeks gestation [place], Bharath 120, [place] of Chacho NEGRO, tel:+ [phone] [place], , [place]. [id number]. tel: tel:[phone] Nicanor [place] Suprvsn of preg w Mar-2 Kiara Referring In Womens poor reprodctv or 8-201 Sindi. Provider: Yasmine SHAW obstet hx, third 8 700 Sindi PO Box triSupervision of Medical Kiara L, 1522, other high risk Center [address] [place] [address], pregnancies, Bharath Brooke, third [email or web address] 120, Center , weeks gestation [place], Bharath 120, [place] of Chacho NEGRO, tel:[phone] [place], , [place]. [id number]. tel: tel: [phone] Associates [facility] Suprvsn of preg w Mar-2 Kiara Referring In Womens Ultrasound poor reprodctv or 8-201 Sindi. Provider: Health COLIN, obstet hx, third 8 700 Sheron- PO Box tri31 weeks Medical Thiesen 1522, gestation of Center [facility], Bharath Brooke [address] [facility], [address], Drive, , Rubi [place], [facility], [address]. tel:[phone] tel: , [place]. [id number] tel: [phone] Nicanor [place] Suprvsn of preg w Mar-1 Kiara Referring In Womens poor reprodctv or 5-201 Sindi. Provider: Health COLIN, obstet hx, third 8 700 Sindi PO Box triSupervision of Medical Kiara L, 1522, other high risk Center [address] [place] [address], pregnancies, Bharath Brooke, third [id number] 120, Center [id number], weeks gestation [place], Bharath 120, US of Chacho NEGRO, tel:[phone] [place], , [place]. [id number]. tel: tel: [phone] Associates [place] Suprvsn of preg w Mar-0 Kiara Referring In Womens poor reprodctv or 1-201 Sindi. Provider: Health COLIN, obstet hx, third 8 700 Sindi PO Box triSupervision of Medical Kiara L, 1522, other high risk Center [address] [place], pregnancies, Bharath Brooke, third [id number] 120, Center [id number], weeks gestation [place], Bharath 120, US of Chacho NEGRO, tel:[phone] MARK[place], , [place]. [id number]. tel: tel: [phone] Associates [place] Suprvsn of preg w Mar-0 Kiara Referring In Womens poor reprodctv or 1-201 Sindi. Provider: yuliet Carey hx, second 8 700 Sindi PO Box triSupervision of Medical [facility] L, 1522, other high risk Center [address] [place], pregnancies, Dr, [facility], second 120, Center , [id number] weeks [place], Bharath 120, [place] gestation of Chacho NEGRO, tel: [phone] [place], , [place]. [id number]. tel: tel: [phone] Associates [place] Suprvsn of preg w Colin-0 Kiara Referring In Womens poor reprodctv or 4-201 Sindi. Provider: yuliet Carey hx, second 8 700 Sindi PO Box triSupervision of [facility] L, 1522, other high risk Center [address] [place], pregnancies, Dr, [facility], second 120, Center , weeks [place], Bharath 120, [place] gestation of Chacho NEGRO, tel: [phone] [place], , [place]. [id number]. tel: tel: [phone] Associates [place] Suprvsn of preg w Colin-0 Kiara Referring In Womens Ultrasound poor reprodctv or 4-201 Sindi. Provider: yuliet Carey hx, second 8 700 Sheron- PO Box triSupervision of [facility] 1522, other high risk Center [facility], [place], pregnancies, Dr, [facility] [address] [facility], second 120, Drive, , [email or web address] weeks Kevin [place], [place] gestation of CHELLY NEGR[place], [address]. tel: tel: , [place]. [id number] tel: [phone] [facility] [place] Suprvsn of preg w Jan-1 Kiara Referring In Womens poor reprodctv or 3-201 Sindi. Provider: Health PA, obstet hx, second 7 700 Sindi PO Box triSupervision of Medical [facility] L, 1522, other high risk Center 700 [place], pregnancies, , Bharath NEGRO, second 120, Center [id number], [email or web address] weeks [facility] 120, [place] gestation of MARKY [place], tel:+ [phone] [place], , [place]. [id number]. tel: tel: [phone] Nicanor [place] Suprvsn of preg w Kiara Referring In Womens poor reprodctv or 7-201 Sindi. Provider: Yasmine SHAW, obstet hx, first 7 700 Sindi PO Box triSupervision of Medical [facility] L, 1522, other high risk Center [address] [place], pregnancies, Dr, Bharath NEGRO, first [id number] 120, Center [id number], weeks gestation [facility] 120, US of MARKYChacho, tel:[phone] [place], , [place]. [id number]. tel: tel: [phone] Nicanor [place] Supervision of Kiara Referring In Womens other high risk 5-201 Sindi. Provider: Yasmine SHAW, pregnancies, 7 700 Sindi PO Box first Medical [facility] L, 1522, trimesterEncntr Center [address] [place] [address], screen for Bharath Brooke, infections w sexl 120, Center [id number], mode of [place], [facility] 120, US transmissEncounte Chacho NEGRO, tel: r for screening [phone] [place], for oth , [place]. [id number]. infec/parastc tel: tel:316 diseasesEncounter [phone] for screening of mother9 weeks gestation of Associates [facility] Patel [place] In Womens Ultrasound 3-201 Alfredo. Health COLIN, [address] [place], 1522, [place], [place], [place], [place], [id number], , [place]. [place] tel: tel: [phone] Family History Family Member Diagnosis Age At [...] party ID Authorization(s) BCBS Out Of [place] [id number] BCBS Out Of [place] [id number] BCBS Out Of [place] [id number] Social History Type Description Quantity Date Captured Alcohol Use Details No Caffeine Use Details Unknown Tobacco Use Status Unknown Smoking Status Never smoker Vital Signs Date / Height Weight BMI Pulse Blood Temperature Respiratory Body Head BMI Time: Rate Pressure Rate Surface Circumference percentile Area 253.20 47.8 132/2018 lbs 4 mm[Hg] 3:38 kg/m PM eter (2) Chief Complaint And Reason For Visit Unknown Chief Complaint And Reason For Visit Reason For Referral Reason For Referral Unknown Plan Of Care Date Type Action Status Appointment Erika Pelayo BOOKED Future Order: Radiology Order Complete OB Ultrasound > 14 Ordered Weeks ([id number]) Future Order: Radiology Order Ultrasound OB Follow-up ([id number]) Ordered Date Type Problem Goal Intervention Status [...]
--- OUTSIDE RECORDS SUMMARY | 2017-07-22 06:01 | External Medical Summary | Continuity of Care Document ---
:1990 Author Organization [facility] [employer] [facility] Address [address] [place], [place] [address] Phone Allergies, Adverse Reactions, Alerts Substance Reaction [...] weeks gestation of - Procedures Procedure Date Ultrasound exam of preg uterus, complete Results Test Name Date and Time Measure [...] L, 1522, other high risk Center [address] [place], pregnancies, , [facility] MARKY, second 120, Center , [email or web address] weeks Chacho [facility] 120, [place] gestation of Chacho NEGRO, tel: [phone] [place], , [place]. [id number]. tel: tel: [phone] Nicanor [place] Supryajairan of preg w Feb- Kiara Referring In Womens Ultrasound poor reprodctv or 4-201 Sindi. Provider: dunia Careyet hx, second 8 700 Sheron- PO Box triSupervision of Medical Thiesen 1522, other high risk Center [facility], , [facility] [address] [facility], second 120, Drive, , [email or web address] weeks Rubi [place], [place] gestation of CHELLY NEGRO, [address]. tel: [phone] tel: , [place]. [id number] tel: [phone] Nicanor Baezn of preg w Kiara Referring In Womens poor reprodctv or 3-201 Sindi. Provider: dunai Careyet hx, second 7 700 Sindi PO Box triSupervision of Medical Kiara L, 1522, other high risk Center 700 lillian Silver[place], , [facility] [place], second 120, Center [id number], [email or web address] weeks Chacho Bharath 120, [place] gestation of Chacho NEGRO, tel: [phone] [place], , [place]. [id number]. tel: tel: [phone] Nicanor Dinero of preg w Kiara Referring In Womens poor reprodctv or 7-201 Sindi. Provider: Health OCLIN, obstet hx, first 7 700 Sindi PO Box triSupervision of Medical Kiara L, 1522, other high risk Center [address] [place], pregnancies, Bharath Brooke, first [email or web address] 120, Center [id number], weeks gestation [facility] 120, [place] of Chacho NEGRO, tel: [phone] [place], , [place]. [id number]. tel: tel: [phone] Nicanor [place] Supervision of Kiara Referring In Womens other high risk 5-201 Sindi. Provider: Yasmine SHAW, pregnancies, 7 700 Sindi PO Box first Medical Kiara L, 1522, trimesterEncntr Center [address] [place], screen for Bharath Brooke, infections w sexl 120, Center [id number], mode of [facility] 120, US transmissEncounte Chacho NEGRO, tel: r for screening [phone] [place], for oth , [place]. [id number]. infec/parastc tel: tel:316 [facility] [phone] for screening of mother9 weeks gestation of Nicanor [facility] Stewart In Womens Ultrasound 3-201 Alfredo. Health COLIN, [address] [place], 1522, [facility], [place], [place], [id number], , [place]. [place] tel: tel: [phone] Family History Family Member Diagnosis Age At [...] older Payers Payer name Insurance type Covered green party ID Authorization(s) BCBS Out Of State [id number] BCBS Out Of [place] [id number] Social History Type Description Quantity Date Captured [...] Complete OB Ultrasound > 14 Ordered Weeks ([id number]) Date Type Problem Goal Intervention Status Start [...]
--- OUTSIDE RECORDS SUMMARY | 2017-07-22 06:01 | External Medical Summary | Continuity of Care Document ---
:1990 Author Organization [facility] [employer] [facility] Address [address] [place], [place] [address] Phone Allergies, Adverse Reactions, Alerts Substance Reaction [...] Procedures Procedure Date OB Visit No Charge Hemoglobin count, colorimetric Hematocrit blood count Glucose test Venpnctr fngr/heel/ear stick routne Results Test Name Date and Time Measure Units Reference Range Abnormal Flag Comments Panel Description: Glucose [Mass/volume] in Serum or Plasma --1 hour post 50 g glucose PO GLUCOSE, GESTATIONAL 85 mg/dL <140 N Test performed at [facility] (50G)-140 15:42:00 DI[facility] [id number] [place] [address]Sgofgjsf: RENAE STERN DO,MPH Panel Description: HEMOGLOBIN + HEMATOCRIT HEMOGLOBIN 15:42:00 11.6 g/dL 11.7-15.5 L HEMATOCRIT 15:42:00 35.7 % 35.0-45.0 N REPORT COMMENT:FASTING :NOTest performed at [employer] [id number] [place] [address]: RENAE STERN DO,MPH Advance Directives Directive Yes / No Effective Date File Name Unknown Encounters Encounter Practice Location Reason(s) Diagnoses Date Provider Care Team Description For Visit Members Nicanor [place] Mar- Kiara In Womens 5-201 Sindi. Yasmine SHAW, 8 700 PO Box [facility] [address] [place], [facility], 120, [id number], [place], [place], tel:[phone] , . tel:[phone] Nicanor [place] Suprvsn of preg w Mar- Kiara Referring In Womens poor reprodctv or 1-201 Sindi. Provider: Yasmine SHAW, duniaet hx, second 8 700 Sindi PO Box triSupervision of Medical Kiara L, 1522, other high risk Center 700 [place], pregnancies, , Bharath Ordonez [place], second 120, Center , [email or web address] weeks Chacho Bharath 120, [place] gestation of Chacho NEGRO, tel: [phone] [place], , [place]. [id number]. tel: tel: [phone] Associates [place] Suprvsn of preg w Colin-0 Kiara Referring In Womens poor reprodctv or 4-201 Sindi. Provider: Health COLIN, obstet hx, second 8 700 Sindi PO Box triSupervision of Medical Kiara L, 1522, other high risk Center [address] [place] [address], pregnancies, Bharath Brooke [facility], second 120, Center , [id number] weeks [place], Bharath 120, [place] gestation of Chacho NEGRO, tel: [phone] [place], , [place]. [id number]. tel: tel: [phone] Associates [place] Suprvsn of preg w Colin-0 Kiara Referring In Womens Ultrasound poor reprodctv or 4-201 Sindi. Provider: Yasmine SHAW obstet hx, second 8 700 Sheron- PO Box [facility]Supervision [facility], other high risk Center [facility], pregnancies, Dr [facility] [address] [place], second 120, Drive, , [email or web address] weeks Kevin [place], [place] gestation of CHELLY NEGRO, [address]. tel: [phone] tel: , [place]. [id number] tel: [phone] Associates [facility] Suprvsn of preg w Dec-1 Kiara Referring In Womens poor reprodctv or 3-201 Sindi. Provider: Yasmine SHAW, obstet hx, second 7 700 Sindi PO Box triSupervision of Medical Kiara L, 1522, other high risk Center 700 [place], pregnancies, Bharath Brooke, second 120, Center , [email or web address] weeks Chacho Bharath 120, [place] gestation of Chacho NEGRO, tel:[phone] [place], , [place]. [id number]. tel: tel: [phone] Nicanor [place] Suprvsn of preg w Kiara Referring In Womens poor reprodctv or 7-201 Sindi. Provider: Health COLIN, obstet hx, first 7 700 Sindi PO Box triSupervision of Medical [facility] L, 1522, other high risk Center 700 [place], pregnancies, Dr, Bharath NEGRO, first [email or web address] 120, Center [id number], weeks gestation [facility] 120, [place] of Chacho NEGRO, tel: [phone] [place], , [place]. [id number]. tel: tel:[phone] Nicanor [place] Supervision of Kiara Referring In Womens other high risk 5-201 Sindi. Provider: Yasmine SHAW, pregnancies, 7 700 Sindi PO Box first [facility], 1522, trimesterEncntr Center [address] [place] [address], [address] for [address], [facility] José Luis NEGRO, infections w sexl 120, Center [id number], mode of [place], [facility] 120, US transmissEncounte Chacho NEGRO, tel: r for screening [place], for oth , [place]. [id number]. infec/parastc tel: tel:[phone] diseasesEncounter [phone] for screening of mother9 weeks gestation of Associates [facility] Terry In Womens Ultrasound 3-201 Alfredo. Health COLIN, [address], 1522, [place], MARKY, [id number], , [place]. [place] tel: tel: [phone] Family History Family Member Diagnosis Age At [...] party ID Authorization(s) BCBS Out Of [place] [id number] BCBS Out Of [place] [id number] Social History Type Description Quantity Date Captured Alcohol Use Details No Caffeine Use Details Unknown Tobacco Use Status Unknown Smoking Status Never smoker Vital Signs Date / Height Weight BMI Pulse Blood Temperature Respiratory Body Head BMI Time: Rate Pressure Rate Surface Circumference percentile Area 253.10 47.8 134/2018 lbs 2 mm[Hg] 2:48 kg/m PM eter (2) Chief Complaint And Reason For Visit Unknown Chief Complaint And Reason For Visit Reason For Referral Reason For Referral Unknown Plan Of Care Date Type Action Status Appointment Erika Pelayo BOOKED Future Order: Radiology Order Complete OB Ultrasound > 14 Ordered Weeks ([id number]) Date Type Problem Goal Intervention Status Start [...]
--- OUTSIDE RECORDS SUMMARY | 2017-07-22 06:01 | External Medical Summary | Continuity of Care Document ---
:1990 Author Organization [facility] Address [address] [place], [place] [id number] Phone Allergies, Adverse Reactions, Alerts Substance Reaction [...] Suprvsn of preg w Kiara Referring In [facility] poor reprodctv or Sindi. Provider: Health COLIN obstet hx, first 7 Sindi [address] triSupervision of Medical Kiara L, 1522, other high risk Center [address] [place], pregnancies, , Bharath Medical MARKY, first [id number] 120, Center [id number], weeks gestation Bharath [place] 120, [place] of [place] NEGRO, tel: [phone] [place], , [place]. [id number]. tel: tel: [phone] Nicanor [place] Kiara In Womens 4-201 Sindi. Health PA, 7 700 [address] Medical 1522, Center [place], , Bharath [place], 120, [id number], [place], [place], tel: [phone] , [place]. tel: [phone] Nicanor [place] Supervision of Kiara Referring In Womens other high risk 5-201 Sindi. Provider: Health PA, pregnancies, 7 700 Sindi PO Box first Medical Kiara L, 1522, trimesterEncntr Center [address] [place], screen for Dr, [facility], infections w sexl 120, [place] , mode of [place], [facility] 120, transmissEncounte Chacho NEGRO, tel: r for screening [phone] [place], for ot , [place]. [id number]. infec/parastc tel: tel: diseasesEncounter [phone] for screening of mother9 weeks gestation of Associates OBI Patel Terry In Womens Ultrasound 3-201 Alfredo. Health PA, [address] [place], 1522, [place], [place], [place], [place], [id number] , , [place]. [place] tel: tel: [phone] Family History Family Member Diagnosis Age At [...] democrat ID Authorization(s) BCBS Out Of State [id number] BCBS Out Of State [id number] Social History Type Description Quantity Date Captured [...]
--- OUTSIDE RECORDS SUMMARY | 2017-07-22 06:01 | External Medical Summary | Continuity of Care Document ---
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 GONORRHOEAE RNA, TMA CHLAMYDIA NOT DETECTED NOT DETECTED N TRACHOMATIS RNA, 14:17:00 TMA NEISSERIA NOT DETECTED NOT DETECTED N GONORRHOEAE RNA, 14:17:00 TMA [id number] SEE NOTE This test was 14:17:00 performed using the APTIMA COMBO2 Assay([employer] The analytical performance characteristics of this assay, when used to test SurePath specimens havebeen determined by [facility]. REPORT COMMENT:FASTING:UNKNO WNTest performed at [facility] [id number] [place] [address]Btdauqxo: RENAE STERN DO,MPH Panel Description: Pap Smear With HPV Reflex If ASCUS Document Pap Smear 13:15:00 See scanned report. Advance Directives Directive Yes / No Effective Date File Name Unknown Encounters Encounter Practice Location Reason(s) Diagnoses Date Provider Care Team Description For Visit Members Associates Chacho Supervision of Kiara Referring In Womens other high risk 5-201 Sindi. Provider: Health COLIN, pregnancies, 7 700 Sindi [address] first Medical Kiara L, 1522, trimesterEncntr Center [address] [place], screen for Dr, [facility], infections w sexl 120, Center [address] [id number], mode of [place], [facility] 120, [place] transmissEncounte Chacho NEGRO, tel: r for screening [phone] [place], [id number] for oth , [place]. [id number]. infec/parastc tel: tel:316 diseasesEncounter [phone] for screening of mother9 weeks gestation of Associates [facility] Terry In Womens Ultrasound 3-201 Alfredo. Health PA, [address], 1522, [place], [id number], , [place]. [place] tel: tel: [phone] Family History Family Member Diagnosis Age At [...] older Payers Payer name Insurance type Covered constitution party ID Authorization(s) BCBS Out Of State [id number] BCBS Out Of State [id number] Social History Type Description Quantity Date Captured Alcohol Use Details No Caffeine Use Details tea 16 oz per day Tobacco Use Status Never smoked tobacco Smoking Status Never smoker Non-Smoking Tobacco Use : No Details Available : No Details Available Details Vital Signs Date / Height Weight BMI Pulse Blood Temperature Respiratory Body Head BMI Time: Rate Pressure Rate Surface Circumference percentile Area 247.30 46.7 133/86 -2017 lbs 2 mm[Hg] 1:21 kg/m PM eter (2) Chief Complaint And [...]
--- OUTSIDE RECORDS SUMMARY | 2017-07-22 06:01 | External Medical Summary | Continuity of Care Document ---
:1989 Author Organization [facility] Address [address] [place], [place] [phone] Phone Allergies, Adverse Reactions, Alerts Substance Reaction [...] Members Associates [place] Suprvsn of preg w Apr-0 Kiara Referring In Womens poor reprodctv or -201 Sindi. Provider: dunia Careyet hx, third 8 700 Sindi PO [address] triSupervision of Medical Kiara L, 1522, other high risk Center [address] [place] [address], [place], Bharath Brooke, third [email or web address] 120, [place] [id number], weeks gestation [place] [facility] 120, [place] of Chacho NEGRO, tel:[phone] MARKY, , [place]. [id number]. tel: tel:[phone] Associates [place] Mar-1 Kiara In Womens 5-201 Sindi. Yasmine SHAW, 8 700 [address], [place] Dr Jean Claude [facility] [place], 120, [id number], [place], [place], tel:[phone] , [place]. tel: [phone] Nicanor Dinero of preg w b-0 Kiara Referring In Womens poor reprodctv or 1-201 Sindi. Provider: Yasmine SHAW obstet hx, second 8 700 Sindi PO Box triSupervision of Medical Kiara L, 1522, other high risk Center [address] [place] [address], pregnancies, Bharath Brooke, second 120, Center [id number], [email or web address] weeks Chacho Bharath 120, [place] gestation of Chacho NEGRO tel: [phone] [place], , [place]. [id number]. tel: tel: [phone] Associates [place] Suprvsn of preg w Colin-0 Kiara Referring In Womens poor reprodctv or 4-201 Sindi. Provider: Yasmine SHAW, obstet hx, second 8 700 Sindi PO Box triSupervision of Medical Kiara L, 1522, other high risk Center 700 [place], pregnancies, Dr, [facility] Medical [place], second 120, Center , [email or web address] weeks Chacho Bharath 120, [place] gestation of Chacho NEGRO, tel: [phone] MARKY, , [place]. [id number]. tel: tel: [phone] Associates [place] Suprvsn of preg w Colin-0 Kiara Referring In Womens Ultrasound poor reprodctv or 4-201 Sindi. Provider: Yasmine SHAW, obstet hx, second 8 700 Sheron- PO Box triSupervision of Medical [facility], other high risk Center [place], [place], pregnancies, , [facility] [address] [facility], second 120, Drive, , [email or web address] weeks Kevin [place], [place] gestation of CHELLY NEGRO, [address]. tel: [phone] tel: , [place]. [id number] tel: [phone] Associates [place] Suprvsn of preg w Dec-1 Kiara Referring In Womens poor reprodctv or 3-201 Sindi. Provider: Yasmine SHAW, obstet hx, second 7 700 Sindi PO Box triSupervision of Medical Kiara L, 1522, other high risk Center 700 [place], pregnancies, , [facility] Medical [place], second 120, Center , [email or web address] weeks Chacho Bharath 120, [place] gestation of Chacho NEGRO, tel: [phone] MARK[place], , [place]. [id number]. tel: tel: [phone] [facility] [place] Suprvsn of preg w Nov-1 Kiara Referring In Womens poor reprodctv or 7-201 Sindi. Provider: Health COLIN, obstet hx, first 7 700 Sindi PO Box triSupervision of Medical Kiara L, 1522, other high risk Center 700 [place], pregnancies, DrBharath, first [email or web address] 120, Center [id number], weeks gestation [place], [facility] 120, [place] of Chacho NEGRO, tel: [phone] MARKY, , [place]. [id number]. tel: tel:[phone] Associates [place] Supervision of Kiara Referring In Womens other high risk 5-201 Sindi. Provider: Yasmine SHAW, pregnancies, 7 700 Sindi PO Box first Medical Kiara L, 1522, trimesterEncntr Center 700 [place], screen for Dr, Bharath NEGRO, infections w sexl 120, Center [id number], mode of [place], [facility] 120, [place] transmissEncounte Chacho NEGRO, tel: r for screening [phone] [place], for oth , [place]. [id number]. infec/parastc tel: tel:316 diseasesEncounter [phone] for screening of mother9 weeks gestation of Associates OBI Patel Terry In Womens Ultrasound 3-201 Alfredo. Health COLIN, [address], 1522, [place], [place], [place], [place], [id number], , [place]. [place] tel: tel: [phone] Family History Family Member Diagnosis Age At [...] republican ID Authorization(s) BCBS Out Of State [id number] BCBS Out Of State [id number] Social History Type Description Quantity Date Captured [...] Complete OB Ultrasound > 14 Ordered Weeks (34992) Date Type Problem Goal Intervention Status Start [...]
--- OUTSIDE RECORDS SUMMARY | 2017-07-22 06:01 | External Medical Summary | Summary of Care ---
[...] Details Planned Observations Planned Goals not documented Planned Encounters Appointment; Provider: Josh Reynolds M.D. On 01-Apr-2007 14:30 Instructions Name Dates Details Instructions not documented Encounters Appointment; Josh Reynolds M.D. On 02-Apr-2016 Encounter Diagnosis: Problem not documented 13:15 Appointment; Josh Reynolds M.D. On 08-Dec-2014 Encounter Diagnosis: Problem not documented 15:00
--- OUTSIDE RECORDS SUMMARY | 2017-07-22 06:01 | External Medical Summary | Continuity of Care Document ---
:1989 Author Organization [facility] Address [address] [place], [place] [phone] Phone Allergies, Adverse Reactions, Alerts Substance Reaction [...] Care Team Description For Visit Members Nicanor Dinero of preg w Kiara Referring In Womens poor reprodctv or 2-201 Sindi. Provider: Health PA, obstet hx, third 8 700 Sindi PO Box triSupervision of [facility] L, 1522, other high risk Center 700 [place], pregnancies, Bharath Brooke, third [email or web address] 120, [place] [id number], weeks gestation Bharath [place] 120, [place] of Chacho NEGRO, tel: [phone] MARK[place] [phone] , [place]. [id number]. tel: tel: [phone] Associates [place] Suprvsn of preg w Mar-2 Kiara Referring In Womens poor reprodctv or 8-201 Sindi. Provider: Yasmine SHAW obstet hx, third 8 700 Sindi PO Box triSupervision of Medical Kiara L, 1522, other high risk Center 700 [place], pregnancies, Bharath Brooke, third [email or web address] 120, Center , weeks gestation [place], Bharath 120, [place] of Chacho NEGRO, tel:+ [phone] [place], , [place]. [id number]. tel: tel: [phone] Associates [place] Suprvsn of preg w Mar-2 Kiara Referring In Womens Ultrasound poor reprodctv or 8-201 Sindi. Provider: Yasmine SHAW, obstet hx, third 8 700 Sheron- PO Box tri31 weeks Medical Thiesen 1522, gestation of [facility], Bharath Brooke [address] [place] [address], 120, [facility], , Rubi [place], [facility], [address]. tel:[phone] tel: , [place]. [id number] tel: [phone] Nicanor [place] Suprvsn of preg w Mar-1 Kiara Referring In Womens poor reprodctv or 5-201 Sindi. Provider: Yasmine SHAW obstet hx, third 8 700 Sindi PO Box triSupervision of Medical Kiara L, 1522, other high risk Center [address] [place] [address], pregnancies, Bharath Brooke, third [email or web address] 120, Center [id number], weeks gestation Chacho Bharath 120, [place] of Chacho NEGRO, tel: [phone] [place], , [place]. [id number]. tel: tel: [phone] Associates [place] Suprvsn of preg w Mar-0 Kiara Referring In Womens poor reprodctv or 1-201 Sindi. Provider: Yasmine SHAW obstet hx, third 8 700 Sindi PO Box triSupervision of Medical Kiara L, 1522, other high risk Center [address] [place] [address], pregnancies, Bharath Brooke, third [email or web address] 120, Center [id number], weeks gestation Chacho Bharath 120, [place] of Chacho NEGRO, tel:[phone] [place], , [place]. [id number]. tel: tel: [phone] Nicanor [place] Suprvsn of preg w Fe-0 Kiara Referring In Womens poor reprodctv or 1-201 Sindi. Provider: Health COLIN, obstet hx, second 8 700 Sindi PO Box triSupervision of Medical Kiara L, 1522, other high risk Center 700 [place], pregnancies, , Bharath [facility], second 120, Center , [email or web address] weeks Chacho Bharath 120, [place] gestation of Chacho NEGRO, tel: [phone] [place], , [place]. [id number]. tel: tel: [phone] Nicanor [place] Suprvsn of preg w Colin-0 Kiara Referring In Womens poor reprodctv or 4-201 Sindi. Provider: Yasmine SHAW obstet hx, second 8 700 Sindi PO Box triSupervision of Medical Kiara L, 1522, other high risk Center 700 [place], pregnancies, , Bharath [facility], second 120, Center [id number], [email or web address] weeks Chacho Bharath 120, [place] gestation of Chacho NEGRO, tel: [phone] [place], , [place]. [id number]. tel: tel: [phone] Nicanor [place] Suprvsn of preg w Colin-0 Kiara Referring In Womens Ultrasound poor reprodctv or 4-201 Sindi. Provider: Yasmine SHAW obstet hx, second 8 700 Sheron- PO Box triSupervision of Medical [facility], other high risk Center [facility], pregnancies, , [facility] [address] [facility], second 120, Drive, , weeks Rubi [place], [place] gestation of CHELLY NEGRO, [address]. tel: [phone] tel: , [place]. [id number] tel: [phone] Nicanor [place] Suprvsn of preg w Dec- Kiara Referring In Womens poor reprodctv or 3-201 Sindi. Provider: Health COLIN, obstet hx, second 7 700 Sindi PO Box triSupervision of Medical Kiara L, 1522, other high risk Center 700 [place], pregnancies, Dr, Bharath NEGRO, second 120, Center [id number], [email or web address] weeks [place], Bharath 120, [place] gestation of Chacho NEGRO, tel: [place], , [place]. [id number]. tel: tel: [phone] Nicanor [place] Suprvsn of preg w Nov Kiara Referring In Womens poor reprodctv or 7-201 Sindi. Provider: Yasmine SHAW, obstet hx, first 7 700 Sindi PO Box triSupervision of Medical Kiara L, 1522, other high risk Center 700 [place], pregnancies, Bharath Brooke, first [email or web address] 120, Center [id number], weeks gestation [place], Bharath 120, [place] of Chacho NEGRO, tel: [phone] [place], , [place]. [id number]. tel: tel: [phone] Nicanor [place] Supervision of Kiara Referring In Womens other high risk 5-201 Sindi. Provider: Yasmine SHAW, pregnancies, 7 700 Sindi PO Box first Medical Kiara L, 1522, trimesterEncntr Center [address] [place] [address], screen for Bharath Brooke, infections w sexl 120, Center [id number], mode of [place], Bharath 120, [place] transmissEncounte Chacho NEGRO, tel: r for screening [phone] [place], for oth , [place]. [id number]. infec/parastc tel: tel:316 diseasesEncounter [phone] for screening of mother9 weeks gestation of Associates [facility] Terry In Womens Ultrasound 3-201 Alfredo. Health COLIN, [address], 1522, [place], [place], [place], [place], [id number], , [place]. [place] tel: tel:[phone] Family History Family Member Diagnosis Age At [...] libertarian ID Authorization(s) BCBS Out Of State [id number] BCBS Out Of [facility] [id number] Social History Type Description Quantity Date Captured [...] Complete OB Ultrasound > 14 Ordered Weeks (00128) Future Order: Radiology Order Ultrasound OB Follow-up (24014) Ordered Date Type Problem Goal Intervention Status [...]
--- OUTSIDE RECORDS SUMMARY | 2017-07-22 06:02 | External Medical Summary | Continuity of Care Document ---
:1990 Author Organization [facility] Allergies Active Description Code Type Severity Reaction Onset Reported/ Identified Relationship Clinical to Patient Status Yes CEPHALEXIN 6830 1 N/A N/A MONOHYDRATE Yes CEPHALEXIN 6830 1 N/A N/A 01/23/1012 MONOHYDRATE Yes loratadine 3909 1 N/A N/A 01/23/1012 Yes cephalexin F0060 Drug Unknown N/A 01/02/2015 21965 Aller gy Yes cephalexin Aller Unknown Hives 06/24/2017 gy Yes loratadine Aller Unknown Hives 06/24/2017 gy Medications Medication Packaging Start Date Stop Date Route Dosage Sig Tablet 04/02/2016 Tablet 1 Azithromycin 250 TAKE 2 MG Oral Tablet TABLETS ON DAY 1 THEN TAKE 1 TABLET A DAY FOR 4 DAYS. Capsule 04/24/2016 Capsule 10 Oseltamivir 1 qd for10 Phosphate 75 MG days Oral Capsule Tablet 05/30/2016 Tablet 28 Reclipsen 0.15-30 TAKE ONE MG-MCG Oral TABLET BY Tablet MOUTH EVERY DAY DIRECTED Capsule 04/09/2017 OSELTAMIVIR 8 take 1 PHOSPHATE capsule by oral route 2 times every day Problems Date Dx Attending Type Code Diagnosis Diagnosed By Coded 01/17/2013 Gail Working J30.1 Hay fever Josh 01/17/2013 Gail Working Z91.018 History of Josh pollen-food allergy 01/17/2013 Gail Working J30.1 Hay fever Josh 01/17/2013 Gail Working Z91.018 History of Josh pollen-food allergy 10/04/2013 Gail Working 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 10/04/2013 Gail, Working 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 12/08/2014 Gail, Working M25.571 Ankle pain, Cynthiaterback, Josh chronic, right Josh 12/08/2014 Schlotterback, Working M25.571 Ankle pain, Schlotterback, Josh chronic, right Josh 12/12/2014 W M25.571 Right ankle pain 12/14/2014 W M25.571 Right ankle pain 01/20/2015 DOROTHY HOOPER, Ot Z45.2 HANNAH P 01/22/2015 W Z48.89 Encounter for other specified surgical aftercare 02/07/2015 DOROTHY HOOPER, Ot Z45.2 HANNAH P 02/26/2015 W Z48.89 Encounter for other specified surgical aftercare 03/07/2015 JACKSON HOOPER, MARGARITO Ot Z45.2 04/02/2015 DOROTHY HOOPER, Ot Z45.2 HANNAH P 04/02/2016 Schlotterback, Working Never smoker Schlotterback, Josh Josh 04/02/2016 Schlotterback, Working J20.8 Acute bronchitis Schlotterback, Josh due to other Josh specified organisms 04/02/2016 Schlotterback, Working R05 Cough Schlotterback, Josh Josh 04/02/2016 Schlotterback, Working Never smoker Schlotterback, Josh Josh 04/02/2016 Schlotterback, Working J20.8 Acute bronchitis Schlotterback, Josh due to other Josh specified organisms 04/24/2016 Schlotterback, Working Z20.828 Exposure to the Schlotterback, Josh flu Josh 05/30/2016 Schlotterback, Working Z30.09 control Schlotterback, Josh counseling Josh 02/26/2017 Sindi Craig O09.292 Suprvsn of preg w L poor reprodctv or obstet hx, second tri 02/26/2017 Sindi Craig O09.892 Supervision of L other high risk pregnancies, second trimester 02/26/2017 Sindi Craig3A.20 20 weeks L gestation of 05/20/2017 Sindi Craig O09.293 Suprvsn of preg w L poor reprodctv or obstet hx, third tri 05/20/2017 Sindi Craig Z3A.31 31 weeks L gestation of 05/20/2017 Sindi Craig O09.293 Suprvsn of preg w L poor reprodctv or obstet hx, third tri 05/20/2017 Sindi Craig Z3A.31 31 weeks L gestation of Procedures Code Description [place] [address] X-RAY EXAM 12/12/2014 OF ANKLE 64507 12/12/2014 OFFICE/OUTPAT[place]IS[place] 79484 REMOVAL OF 12/20/2014 SUPPORT IMPLANT 41975 REMOVAL OF 01/03/2015 SUPPORT IMPLANT 44594 POSTOP 01/11/2015 FOLLOW-UP VISIT 96207 Ultrasnd 02/26/2017 exam of preg uterus, compl 06019 Ultrasnd 05/20/2017 preg uterus, flwup/repeat Results There is no data. Encounters ACCT No. Visit Discharge Status Pt. Type Provider Facility Loc./Unit Complaint Date/Time [id number] 01/02/2015 01/02/2015 CLS Outpatien DOROTHY Luciano EUOP 0513 16:39:00 23:59:59 t [facility] [id number] 01/01/2015 01/01/2015 CLS Outpatien JACKSON HOOPER, [facility] 7933 07:55:00 23:59:59 t [facility] [id number] 07/16/2017 07/16/2017 CLS Preadmit [id number] 00:00:00 23:59:59 [id number] 07/08/2017 07/08/2017 CLS Outpatien Kiara, 16:10:00 23:59:59 t Sindi L [id number] 07/02/2017 07/02/2017 CLS Outpatien Kiara, 16:00:00 23:59:59 t Sindi L [id number] 06/25/2017 06/25/2017 CLS Outpatien Kiara, 14:50:00 23:59:59 t Sindi L [id number] 06/18/2017 06/18/2017 CLS Outpatien Kiara, 15:30:00 23:59:59 t Sindi L [id number] 06/04/2017 06/04/2017 CLS Outpatien Kiara, 15:30:00 23:59:59 t Sindi L [id number] 05/20/2017 05/20/2017 CLS Outpatien Kiara, 14:35:00 23:59:59 t Sindi L [id number] 05/20/2017 05/20/2017 CLS Outpatien Kiara, 14:15:00 23:59:59 t Sindi L [id number] 05/07/2017 05/07/2017 CLS Outpatien Kiara, 14:10:00 23:59:59 t Sindi L [id number] 04/23/2017 04/23/2017 CLS Outpatien Kiara, 14:40:00 23:59:59 t Sindi L [id number] 04/09/2017 04/09/2017 CLS Outpatien Kiara, 08:15:00 23:59:59 t Sindi L [id number] 03/26/2017 03/26/2017 CLS Outpatien Kiara, 14:40:00 23:59:59 t Sindi L [id number] 02/26/2017 02/26/2017 CLS Outpatien Kiara, 14:30:00 23:59:59 t Sindi L [id number] 02/26/2017 02/26/2017 CLS Outpatien Kiara, 14:15:00 23:59:59 t Sindi L [id number] 02/04/2017 02/04/2017 CLS Outpatien Kiara, 16:15:00 23:59:59 t Sindi L [id number] 01/19/2017 01/19/2017 CLS Outpatien Kiara, 09:11:00 23:59:59 t Sindi L [id number] 01/09/2017 01/09/2017 CLS Outpatien Kiara, 13:50:00 23:59:59 t Sindi L [id number] 01/06/2017 01/06/2017 CLS Outpatien Kiara, 14:43:00 23:59:59 t Sindi L [id number] 12/17/2016 12/17/2016 CLS Outpatien Kiara, 13:15:00 23:59:59 t Sindi L [id number] 07/15/2017 Document 15:40:00 Registrat ion [id number] 01/11/2015 01/11/2015 CLS Outpatien [place] 09:15:00 23:59:59 t [employer] [id number] 08/08/2016 [facility] Concepcion 1 [place] 05:13:14 Preet dickerson [id number] 05/23/2016 ACT Larissa Yeison Waterschinson 1 MS 07:04:51 Preet dickerson [id number] 05/23/2016 Document 00:57:33 Registrat ion
[2017-07-22] MEDS ORDERED: CARBOPROST 250 MCG/ML INJECTION IM PRN (06:04)
[2017-07-22] MEDS ORDERED: D5LR 1,000 ML IV PRN (06:04)
[2017-07-22] MEDS ORDERED: ACETAMINOPHEN 500 MG TABLET PO PRN ×2 (06:04→16:37)
[2017-07-22] MEDS ORDERED: METHYLERGONOVINE 0.2 MG/ML INJECTION IM PRN (06:04)
[2017-07-22] MEDS ORDERED: OXYTOCIN DRIP 30 UNIT/500 ML ML IV PRN (06:04)
[2017-07-22] MEDS ORDERED: LIDOCAINE 1% (10mg/ml) 2mL INJ PF SDV ID PRN (06:04)
[2017-07-22] MEDS ORDERED: CALCIUM CARBONATE Chewable 500mg TABLET PO PRN ×2 (06:04→16:37)
[2017-07-22] MEDS ORDERED: MAG-AL + SIM ORAL LIQUID 30ml PO PRN ×2 (06:04→16:37)
[2017-07-22 06:47] VITALS: BMI 45.3
[2017-07-22] MEDS: LR 1,000 ML IV PRN ×4 (06:52→14:27)
--- NOTE | 2017-07-22 09:20 | Anesthesia Preoperative Report ---
Anesthesia Epidural/Spinal Rec - Date and Time Date: 07/22/17 Preoperative Diagnosis: Labor Procedure: Labor Epidural Plan: Epidural - Vital Signs Vital Signs: Temperature 98.0 F 07/22/17 06:42 Pulse Rate 119 H 07/22/17 06:42 Respiratory Rate 18 07/22/17 06:42 Blood Pressure 118/66 07/22/17 06:42 Pulse Oximetry 98 07/22/17 06:42 /Para: P:2 - Medictaions & Allergies Inpatient Medications: Current Medications Acetaminophen (Tylenol) 500 - 1,000 mg PO Q4H PRN PRN Reason: Pain Al Hydroxide/Mg Hydroxide (Maalox Plus) 30 ml PO Q3H PRN PRN Reason: Indigestion Calcium Carbonate (Tums) 500 - 1,000 mg PO Q2H PRN PRN Reason: Indigestion Carboprost Tromethamine (Hemabate) 250 mcg IM O PRN PRN Reason: .Downtime Dextrose/Lactated Ringer's (Dextrose 5%-Lactated Ringers) 1,000 mls @ 125 mls/ hr IV .Q8H PRN PRN Reason: Labor Last Admin: 07/22/17 06:52 Dose: 125 mls/hr Lactated Ringer's (Lactated Ringers) 1,000 mls @ 999 mls/hr IV .Q1H1M PRN Last Admin: 07/22/17 06:52 Dose: 999 mls/hr Oxytocin (Pitocin Drip) 30 unit in 500 mls @ 2 mls/hr IV .Q24H PRN; Protocol PRN Reason: Induction/Augmentation Last Admin: 07/22/17 06:52 Dose: 2 mls/hr Lidocaine HCl (Xylocaine-Mpf 1% Vial) 0.2 mg ID O PRN PRN Reason: IV Start Methylergonovine Maleate (Methergine) 0.2 mg IM O PRN Misoprostol (Cytotec) 800 mcg RI ONCE PRN Allergies/Adverse Reactions: Allergies Allergy/AdvReac Type Severity Reaction Status Date / Time cephalexin Allergy Mild Hives Verified 07/22/17 06:54 loratadine Allergy Difficulty Verified 07/22/17 06:54 Breathing - Home Medications Home Medications: Home Medications Medication Instructions Recorded Confirmed Type CALCIUM CARBONATE Chewable [Tums 1 - 2 tab PO PRN PRN 07/22/17 07/22/17 History Extra Strength] Pnv No.95/Ferrous Fum/Folic AC 1 tab PO DAILY 07/22/17 07/22/17 History [ Tablet] - Medical History Respiratory: Reports: Asthma (mild) Gastrointestional: Reports: Gastroesophageal Reflux Disease Other History: Reports: Now - Surgical History Musculoskeletal Surgery/Tx: Reports: Other (ankle surgery several years ago) Reproductive Surgery/Treatment: DENIES: Section Anesthesia Reactions: None Hx Family Anesthesia Reaction: No History of Motion Sickness: No - Social History Smoking Status: Never smoker Substance Use Type: does not use Alcohol Intake Frequency: does not drink - Pertinent Findings Lab Data: CBC and BMP 07/22/17 06:35 - Airway Assessment Mallampati Score: II TMD: 3 Fingerbreadths Neck Extension: fair Overall Assessment: may be difficult mask vent, may be difficult intubation - ASA ASA Score: 2 - Discussion Discussion: Discussed risks/options/alternatives of anesthesia and questions answered. Patient consents. Nursing pain assessment noted. Anesthesia Discussion: spouse Attestation Statement: Prior to the delivery of any anesthetic medication, I examined the patient, developed the plan, obtained the patient's consent and discussed the risk and benefits of the procedure with the patient/guardian.
[2017-07-22] MEDS ORDERED: DiphenhydrAMINE 50 MG/ML INJECTION IVP PRN (10:55)
[2017-07-22] MEDS ORDERED: ONDANSETRON 4 MG/2 ML INJECTION IVP PRN (10:55)
[2017-07-22] MEDS ORDERED: ROPIVACAINE 1% 10MG/ML INJ 200 MG, SUFentanil 50 MCG in NS 100 ML EPI PRN (10:55)
[2017-07-22] MEDS ORDERED: NALOXONE 0.4 MG/ML INJECTION IVP PRN (10:55)
[2017-07-22] MEDS ORDERED: HYDROCORTISONE 2.5% CREAM 30gm RECTALLY PRN (16:37)
[2017-07-22] MEDS ORDERED: DiphenhydrAMINE 25 MG CAPSULE PO PRN (16:37)
--- NOTE | 2017-07-22 18:16 | Labor and Delivery Note ---
DATE OF DELIVERY 07/22/2017 NARRATIVE Ms. Pelayo progressed well in first stage of labor. She began to push with excellent effort at the complete and +1 position. She pushed for a short while , delivering the head in the OA presentation. Baby was bulb suctioned on the perineum. There was light meconium. With a further push the baby was delivered in total. There was no evidence of nuchal cord. Baby was then further bulb suctioned and placed on mother's abdomen for care. This is a liveborn female with Apgars of 9/9/9. Weight has not yet been obtained as the baby is still in [id number] contact. The placenta subsequently delivered spontaneously intact. It had a normal configuration and normal-appearing three- vessel cord. Perineum was intact. There was a rent that has been well-healed apparently from prior delivery. The total blood loss was approximately 300 mL. At the time of this dictation mother and baby are doing well. [facility]
[2017-07-22] MEDS: IBUPROFEN 800 MG TABLET PO SCH ×2 (22:04→22:18)
[2017-07-23] MEDS: IBUPROFEN 800 MG TABLET PO SCH ×2 (01:54→13:41)
[2017-07-23] MEDS: HYDROCODONE/APAP 5mg/325mg TABLET PO PRN ×2 (03:44→13:40)
[2017-07-23 04:05] VITALS: RESP 16
--- NOTE | 2017-07-23 08:10 | OB/GYN Progress Note ---
OB-PP Progress Note - General PPD1 - Subjective Date: 07/23/17 Lochia: Moderate Pain: controlled Voiding: voiding Nausea or Vomiting Present: No - Objective Vital Signs: Last Vital Signs Temp 98.4 F 07/23/17 04:03 Pulse 67 07/23/17 04:03 Resp 16 07/23/17 04:03 BP 102/59 07/23/17 04:03 Pulse Ox 98 07/23/17 04:03 Urine Output: good General: alert and oriented Abdomen: fundus firm Edema: none - Assessment Assessment: - Plan Plan: routine care, discharge home
[2017-07-23] MEDS ORDERED: PRENATAL VITAMIN TABLET PO SCH (09:00)
[2017-07-23] MEDS ORDERED: DOCUSATE CALCIUM 240 MG CAPSULE PO SCH (09:00)
[2017-07-23 18:56] VITALS: BP 114/62; PULSE 64; TEMP 98; O2SAT 100
== END 2017-07-23 19:15 | disposition home or self-care (01) | DRG 775 ==
LOC: MC 07-22 05:53
PROVIDERS: ADMIT Obstetrics & Gynecology; ATTEND Obstetrics & Gynecology